=== PATIENT | male | born 2000 | race American Indian/Alaskan Native ===

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

== ENCOUNTER 2021-07-10 17:02 | Emergency (ER) | payer OTHER ==
[~2021-07-10] VITALS: Ht 180.3 cm; Wt 94.3 kg
[2021-07-10] MEDS ORDERED: PROTONIX20 MG PO (20:44)
[2021-07-10] MEDS ORDERED: CARAFATE1 GM PO (20:44)
== END 2021-07-10 21:39 | disposition home or self-care (01) ==
LOC: ED 17:02
DX: K29.70 Gastritis, unspecified, without bleeding (principal); Z87.891 Personal history of nicotine dependence; Z91.030 Bee allergy status
CPT/HCPCS: 36415; 74018; 80053; 83690; 85025; 85610; 96374; 99284-25; J2405; J7030